=== PATIENT | male | born 1995 | race Caucasian/White ===

== ENCOUNTER 2017-09-07 11:03 | Emergency (ER) | payer SELFPAY ==
[~2017-09-07] VITALS: Ht 162.6 cm; Wt 71.2 kg
[2017-09-07 13:47] LABS: BASOPHIL (%) 0.3 % (0-1); EOSINOPHIL (%) 1.4 % (0-5); EOSINOPHIL COUNT 0.2 K/uL (0-0.3); HEMATOCRIT 46.5 % (38.0-50.0); HEMOGLOBIN 16.1 G/DL (12.5-16.6); IMMATURE GRANULOCYTE (%) 0.5 % (0.0-0.7); LYMPHOCYTE (%) 9.8 % (15-42); LYMPHOCYTE COUNT 1.3 K/uL (1.0-2.8); MCH 28.6 PG (29.0-34.0); MCHC 34.6 G/DL (30.0-36.0); MCV 82.6 FL (86-99); MONOCYTE (%) 4.2 % (3-12); MONOCYTE COUNT 0.5 K/uL (0-0.8); NEUTROPHIL (%) 83.8 % (45-76); NEUTROPHIL COUNT 10.8 K/uL (1.8-6.4); PLATELET COUNT 240 K/uL (156-360); RBC DIS.WIDTH-CV 13.2 % (11.8-14.6); RBC DIS.WIDTH-SD 39.6 % (39-53); RED BLOOD COUNT 5.63 M/uL (4.00-5.50); WHITE BLOOD COUNT 12.9 K/uL (4.1-10.2)
[2017-09-07 13:55] LABS: ALBUMIN 4.6 g/dL (3.2-4.8)
[2017-09-07 13:56] LABS: CHLORIDE 103 mEq/L (99-109); POTASSIUM 4.3 mEq/L (3.7-5.4); SODIUM 138 mEq/L (136-147)
[2017-09-07 13:58] LABS: GLUCOSE 82 mg/dL (70-99); TOTAL PROTEIN 7.8 g/dL (6.4-8.3)
[2017-09-07 14:00] LABS: TOTAL BILIRUBIN 0.7 mg/dL (0.0-1.0)
[2017-09-07 14:01] LABS: ALKALINE PHOSPHATASE 59 IU/L (3-129)
[2017-09-07 14:03] LABS: AST (GOT) 34 IU/L (2-34); CREATININE 0.8 mg/dL (0.6-1.3); GFR ESTIMATE (CALCULATED) > 59 mL/min/ (58.99-99999); UREA NITROGEN (BUN) 17 mg/dL (9-23)
[2017-09-07 14:04] LABS: ALT (GPT) 39 IU/L (3-49)
[2017-09-07 14:05] LABS: LIPASE 22 U/L (1.0-51.0)
[2017-09-07 17:00] VITALS: BP 110/63
== END 2017-09-07 18:07 | disposition home or self-care (01) ==
LOC: EME 11:03
PROVIDERS: Emergency Medicine
DX: R10.84 Generalized abdominal pain (principal); J45.909 Unspecified asthma, uncomplicated; F41.9 Anxiety disorder, unspecified; F90.9 Attention-deficit hyperactivity disorder, unspecified type; F17.200 Nicotine dependence, unspecified, uncomplicated
CPT/HCPCS: 74177; 80053; 81003; 83690; 85025; 99281; 99284; J1885; J7030